=== PATIENT | female | born 1980 | race Caucasian/White ===

== ENCOUNTER 2020-09-06 09:53 | Emergency (ER) | payer SELFPAY ==
--- NOTE | 2020-09-06 10:17 | EDM.PDOC ---
ED HPI GENERAL MEDICAL PROBLEM - General Chief Complaint: Respiratory Problem Stated Complaint: EMS Time Seen by Provider: 09/06/20 09:58 - History of Present Illness INITIAL COMMENTS - FREE TEXT/NARRATIVE: History of present illness: This [age] female admits that she does not take care of her self. She says he makes bad decisions. She takes meth. 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 Her higher power told her to come to the hospital although she did involved with a discussion with the police that may or may not end up with some legal liability on her part. She used to use alcohol to excess but has not had a problem with that recently. Today her primary complaint is sore throat and a pleuritic chest pain. He does smoke cigarettes. Patient has some cough and feels quite anxious. Using methamphetamine this morning. [] Review of systems: As per history of present illness and below otherwise all systems reviewed and negative. Past medical history: As per history of present illness and as reviewed below otherwise noncontributory. Surgical history: As per history of present illness and as reviewed below otherwise noncontributory. Social history: No reported history of drug or alcohol abuse. Family history: As per history of present illness and as reviewed below otherwise noncontributory. Physical exam: Constitutional - well developed, well-nourished and in no acute distress HEENT - normocephalic, no evidence of trauma - external nose and mouth normal - no mass in neck and no JVD - mucosae moist EYES - full EOM, PERRL, no icterus - no evidence of inflammation, injection, or drainage Respiratory - no respiratory distress, equal bilateral expansion, lungs clear to auscultation and no abnormal lung sounds Cardiovascular - Regular Rhythm with S1 and S2 appreciated and no murmur, gallop or rub. GI - abdomen soft without distension or organomegaly - normal bowel sounds - no guard or rebound Musculoskeletal no gross deformity of long bones or joints - no tenderness, swelling or edema Neurologic - Alert and oriented times four - CN II-XII grossly intact - motor sensory and coordination symmetrically normal Psychiatric - appropriate mood and affect with normal thought content Hematologic - No petechiae or purpura - mucosa appropriate color and sclera not pale - normal nail bed color and refill Integument - no rash or evidence of trauma - normal turgor Diagnostics: [] Therapeutics: [] Impression: [] Plan: [] Definitive disposition and diagnosis as appropriate pending reevaluation and review of above. Throat Pain Score (Numeric/FACES): 7 - Related Data Allergies Allergy/AdvReac Type Severity Reaction Status Date / Time No Known Allergies Allergy Verified 09/06/20 10:02 Home Meds: Home Meds Potassium Chloride 20 meq PO DAILY #30 tab.er.prt 09/06/20 [Rx] Past Medical History - Infectious Disease History Infectious Disease History: Reports: None Social & Family History - Family History Family Medical History: No Pertinent Family History - Recreational Drug Use Recreational Drug Type: Reports: Methamphetamine Recreational Drug Use Frequency: Daily ED ROS GENERAL - Review of Systems Review Of Systems: Comprehensive ROS is negative, except as noted in HPI. ED EXAM, GENERAL - Physical Exam Exam: See Below Free Text/Narrative:: My physical exam is in the HPI #1 Interpretation EKG Interpretation Comments: He done at 10:35 AM and read at 1014 reveals a sinus rhythm with a heart rate of 76 and a MS interval of 140. The axis is 82 and QT is 428. Other than baseline wander there is no abnormality. Impression normal EKG Course - Vital Signs Text/Narrative:: 10:56 AM chest x-ray is unremarkable. Nipple artifact is predominant enough that I cannot rule out a coin lesion on either side but because of the location I feel strongly that this does not need any further acute attention. Last Recorded V/S: Last Vital Signs Temp 36.0 C L 09/06/20 10:02 Pulse 97 09/06/20 11:52 Resp 19 09/06/20 11:52 BP 119/66 09/06/20 11:52 Pulse Ox 98 09/06/20 11:52 - Orders/Labs/Meds Orders: Active Orders 24 hr Category Date Time Status EKG 12 Lead [EKG Documentation Completion] [RC] STAT Care 09/06/20 10:01 Active Labs: Laboratory Tests 09/06/20 09/06/20 09/06/20 Range/Units 10:16 10:16 10:20 WBC 7.93 (4.0-11.0) K/uL RBC 4.65 (4.30-5.90) M/uL Hgb 8.4 L (12.0-16.0) g/dL Hct 29.5 L (36.0-46.0) % MCV 63.4 L (80.0-98.0) fL MCH 18.1 L (27.0-32.0) pg MCHC 28.5 L (31.0-37.0) g/dL RDW Std Deviation 45.6 (28.0-62.0) fl RDW Coeff of Nika 20 H (11.0-15.0) % Plt Count 424 H (150-400) K/uL MPV 9.00 (7.40-12.00) fL Neut % (Auto) 76.3 (48.0-80.0) % Lymph % (Auto) 11.9 L (16.0-40.0) % [place] % (Auto) 11.6 (0.0-15.0) % Eos % (Auto) 0.1 (0.0-7.0) % Baso % (Auto) 0.1 (0.0-1.5) % Neut # (Auto) 6.1 H (1.4-5.7) K/uL Lymph # (Auto) 0.9 (0.6-2.4) K/uL [place] # (Auto) 0.9 H (0.0-0.8) K/uL Eos # (Auto) 0.0 (0.0-0.7) K/uL Baso # (Auto) 0.0 (0.0-0.1) K/uL Nucleated RBC % 0.0 /100WBC Nucleated RBCs # 0 K/uL Sodium 138 (136-145) mmol/L Potassium 2.8 L (3.5-5.1) mmol/L Chloride 102 (98-107) mmol/L Carbon Dioxide 25.3 (21.0-32.0) mmol/L BUN 13 (7.0-18.0) mg/dL Creatinine 0.6 (0.6-1.0) mg/dL Est Cr Clr Drug Dosing 91.03 mL/min Estimated GFR (MDRD) > 60.0 ml/min Glucose 105 (74-106) mg/dL Calcium 8.4 L (8.5-10.1) mg/dL Total Bilirubin 0.5 (0.2-1.0) mg/dL AST 22 (15-37) IU/L ALT 35 (14-63) IU/L Alkaline Phosphatase 83 (46-116) U/L Troponin I < 0.050 (0.000-0.056) ng/mL Total Protein 7.9 (6.4-8.2) g/dL Albumin 3.9 (3.4-5.0) g/dL Globulin 4.0 (2.6-4.0) g/dL Albumin/Globulin Ratio 1.0 (0.9-1.6) Urine HCG, Qual NEGATIVE (NEGATIVE) SARS-CoV-2 RNA (CELESTE) (NEGATIVE) Group A Strep (PCR) (NOT DETECT) 09/06/20 09/06/20 Range/Units 11:05 11:05 WBC (4.0-11.0) K/uL RBC (4.30-5.90) M/uL Hgb (12.0-16.0) g/dL Hct (36.0-46.0) % MCV (80.0-98.0) fL MCH (27.0-32.0) pg MCHC (31.0-37.0) g/dL RDW Std Deviation (28.0-62.0) fl RDW Coeff of Nika (11.0-15.0) % Plt Count (150-400) K/uL MPV (7.40-12.00) fL Neut % (Auto) (48.0-80.0) % Lymph % (Auto) (16.0-40.0) % [place] % (Auto) (0.0-15.0) % Eos % (Auto) (0.0-7.0) % Baso % (Auto) (0.0-1.5) % Neut # (Auto) (1.4-5.7) K/uL Lymph # (Auto) (0.6-2.4) K/uL [place] # (Auto) (0.0-0.8) K/uL Eos # (Auto) (0.0-0.7) K/uL Baso # (Auto) (0.0-0.1) K/uL Nucleated RBC % /100WBC Nucleated RBCs # K/uL Sodium (136-145) mmol/L Potassium (3.5-5.1) mmol/L Chloride (98-107) mmol/L Carbon Dioxide (21.0-32.0) mmol/L BUN (7.0-18.0) mg/dL Creatinine (0.6-1.0) mg/dL Est Cr Clr Drug Dosing mL/min Estimated GFR (MDRD) ml/min Glucose (74-106) mg/dL Calcium (8.5-10.1) mg/dL Total Bilirubin (0.2-1.0) mg/dL AST (15-37) IU/L ALT (14-63) IU/L Alkaline Phosphatase (46-116) U/L Troponin I (0.000-0.056) ng/mL Total Protein (6.4-8.2) g/dL Albumin (3.4-5.0) g/dL Globulin (2.6-4.0) g/dL Albumin/Globulin Ratio (0.9-1.6) Urine HCG, Qual (NEGATIVE) SARS-CoV-2 RNA (CELESTE) NEGATIVE (NEGATIVE) Group A Strep (PCR) NOT DETECTED (NOT DETECT) Departure - Departure Time of Disposition: 12:03 Disposition: Home, Self-Care 01 Condition: Good Clinical Impression: Hypokalemia, Substance abuse - Discharge Information Prescriptions: Potassium Chloride 20 meq PO DAILY #30 tab.er.prt Instructions: Hypokalemia, Substance Use Disorder and Mental Illness Referrals: PCP,None [Primary Care Provider] - Forms: ED Department Discharge Additional Instructions: [facility] Address: [address] [place], [place] [id number] Hours: walk in 9 AM M-F [facility] [address] [place] [id number] [id number] The following information is given to patients seen in the emergency department who are being discharged to home. This information is to outline your options for follow-up care. We provide all patients seen in our emergency department with a follow-up referral. The need for follow-up, as well as the timing and circumstances, are variable depending upon the specifics of your emergency department visit. If you don't have a primary care physician on staff, we will provide you with a referral. We always advise you to contact your personal physician following an emergency department visit to inform them of the circumstance of the visit and for follow-up with them and/or the need for any referrals to a consulting specialist. The emergency department will also refer you to a specialist when appropriate. This referral assures that you have the opportunity for follow-up care with a specialist. All of these measure are taken in an effort to provide you with optimal care, which includes your follow-up. Under all circumstances we always encourage you to contact your private physician who remains a resource for coordinating your care. When calling for follow-up care, please make the office aware that this follow-up is from your recent emergency room visit. If for any reason you are refused follow-up, please contact the [facility] Emergency Department at and asked to speak to the emergency department charge nurse. Sepsis Event Note (ED) - Evaluation Sepsis Screening Result: Possible Sepsis Risk - Focused Exam Vital Signs: Vital Signs Temp Pulse Resp BP Pulse Ox 09/06/20 11:52 97 19 119/66 98 09/06/20 11:22 98 18 111/64 98 09/06/20 10:52 96 20 125/85 99 09/06/20 10:02 36.0 C L 101 H 24 H 141/97 H 100 - My Orders Last 24 Hours: My Active Orders 09/06/20 10:01 EKG 12 Lead [EKG Documentation Completion] [RC] STAT - Assessment/Plan Last 24 Hours: My Active Orders 09/06/20 10:01 EKG 12 Lead [EKG Documentation Completion] [RC] STAT
--- NOTE | 2020-09-06 11:09 | CR ---
INDICATION: Chest pain and cough. COMPARISON: None. TECHNIQUE: Single portable AP view of the chest. FINDINGS: The lungs are adequately inflated. No focal consolidation, pneumothorax or effusion. There are bilateral nipple shadows noted. Cardiomediastinal silhouette is within normal limits. There are no acute osseous findings. IMPRESSION: Negative AP view of the chest. Dictated by Vance Hanks MD @ 09/06/2020 11:09:17 AM Dictated by: Vance Hanks MD @ 09/06/2020 11:09:23 (Electronically Signed)
[2020-09-06 11:13] LABS: BLOOD UREA NITROGEN,BUN 13 mg/dL (7.0-18.0); CARBON DIOXIDE,CO2 25.3 mmol/L (21.0-32.0); CHLORIDE,CL 102 mmol/L (98-107); GLUCOSE RANDOM 105 mg/dL (74-106); POTASSIUM,K 2.8 mmol/L (3.5-5.1); SODIUM,NA 138 mmol/L (136-145)
[2020-09-06] MEDS ORDERED: Potassium Chloride 20 MEQ Tab.ER PO ONE (11:36)
== END 2020-09-06 12:18 | disposition home or self-care (01) ==
LOC: MW.ED 09:53
DX: F15.10 Other stimulant abuse, uncomplicated (principal); E87.6 Hypokalemia; R05 Cough; Z20.822 Contact with and (suspected) exposure to COVID-19
CPT/HCPCS: 36415; 71045; 80053; 81025; 84484; 85025; 87635; 87651; 93005; 99285; A9270; 93010; 99283; U0002